=== PATIENT | female | born 1995 | race African-American/Black ===

== ENCOUNTER 2019-11-09 14:16 | Emergency (ER) | payer OTHER, SELFPAY ==
[2019-11-09 14:50] LABS: Bilirubin Negative (Negative); Blood, Urine Trace (Negative); Clarity Clear (Clear); Glucose, Urine (Dipstick) Negative (Negative); Leukocyte Moderate (Negative); Nitrite Negative (Negative); Protein, Urine (Dipstick) Negative (Neg-Trace); Urobilinogen 0.2 mg/dL (Less than 2)
[2019-11-09 14:58] LABS: Pregnancy Test - Urine (BHCG) Negative (Negative); Pregu Control Background? CLEAR/WHITE (CLR/WHITE); Pregu Control Bar Appear? YES (CONTROL BAR)
[2019-11-09 14:59] LABS: Bacteria/HPF 1+ HPF (None Seen)
[2019-11-09] MEDS ORDERED: Ondansetron ODT 4 MG TAB ONE (15:17)
[2019-11-09] MEDS ORDERED: Azithromycin 250 MG TAB ONE (15:17)
[2019-11-09] MEDS ORDERED: cefTRIAXone\\ROCEPHIN 250 MG VIAL ONE (15:17)
[2019-11-09] MEDS ORDERED: Lidocaine 1% PF 5 ML VIAL ONE (15:21)
== END 2019-11-09 15:55 | disposition home or self-care (01) ==
LOC: ERS 14:16
DX: N73.9 Female pelvic inflammatory disease, unspecified (principal); F17.290 Nicotine dependence, other tobacco product, uncomplicated
CPT/HCPCS: 81003; 81015; 81025; 87480; 87491; 87510; 87591; 87660; 96372; 99283; J0696; J2001; Q0162

== ENCOUNTER 2020-01-05 14:43 | Observation (INO) | payer OTHER, SELFPAY ==
--- NOTE | 2020-01-05 15:24 | RAD ---
Exam: XR Ankle Rt 3 View STANDARD HISTORY: Injury right ankle. COMPARISON: None FINDINGS: There is an obliquely oriented fracture involving the distal fibula with mild separation of fracture fragments. No additional fracture is visualized. There does appear to be mild asymmetric widening of the joint s pace between the medial malleolus and talus with respect to the joint space between the distal tibia and tibial plafond and ligamentous injury cannot be excluded. However, no significant adjacent soft tissue swelling is seen medially. IMPRESSION: 1. Mildly fracture distal right fibula with adjacent subcutaneous soft tissue swelling. 2. Mild increased widening of the joint space between the medial malleolus and talus. Ligamentous inj ury cannot be excluded.
[2020-01-05] MEDS ORDERED: HYDROcodone/Acetaminophen 10/325 mg Tablet ONE (16:14)
[2020-01-05] MEDS ORDERED: Fentanyl 100 MCG/2 ML VIAL ONE (16:53)
[2020-01-05] MEDS ORDERED: CEFAZOLIN 2 GM in Premix Bag 1 BAG IVPB SCH (17:00)
[2020-01-05] MEDS ORDERED: Dextrose 5% in Water 1,000 ML IV PRN (17:25)
[2020-01-05] MEDS ORDERED: hydrALAZINE 20 MG/ML VIAL SLOW IVP PRN (17:25)
[2020-01-05] MEDS ORDERED: Ondansetron PF 4 MG/2 ML Vial IVP PRN (17:25)
[2020-01-05] MEDS ORDERED: Dextrose 50% Abboject 50 ML SYRINGE SLOW IVP PRN (17:25)
--- NOTE | 2020-01-05 17:30 | CON ---
DATE OF CONSULTATION: This is Solo Gallegos PA-C dictating a report for Shayan Wilson MD. SUBJECTIVE: We were asked by the ER to see patient. The patient was squatting down earlier today and she was on some gravel and a right ankle slipped out from under her, she felt a pop and thought she had been kicked, she looked down at her ankle and It was not in its right place. She then pushed it back in place, tried to walk, but she was unable to due to pain. She was brought to the emergency room by a friend. No other injury sustained in this fall, and she has no numbness and tingling in the foot. No abrasions in the area and says she is quite healthy. PAST MEDICAL HISTORY: Healthy. PAST SURGICAL HISTORY: C-sections x2, cyst removal, and tubes in ears. PSYCHIATRIC HISTORY: None. SOCIAL HISTORY: Denies any alcohol or nicotine, or illicit drug use. FAMILY HISTORY: Positive for malignancy, cardiac disease, diabetes. MEDICATIONS: None. ALLERGIES: NO KNOWN DRUG ALLERGIES. REVIEW OF SYSTEMS: Denies any chest pain or shortness of breath. No bowel or bladder issues. Just complains of right ankle pain. Rest of review of systems is negative. PHYSICAL EXAMINATION: GENERAL: Well-nourished female, resting on the gurney in room 2 in the emergency room. She is in no acute distress. Speech clear. Affect pleasant. Answers questions appropriately. She is alert and oriented x3. HEENT: Face symmetric. Tongue midline. NECK: Supple. Trachea midline. EXTREMITIES: Upper extremities are equal size, shape, symmetry. Normal bulk and tone. Strength equal as are sensations. RESPIRATIONS: 16 and equal. No acute distress. PELVIS: No pain with rocking. LOWER EXTREMITIES: Also equal size, shape, symmetry. Normal bulk and tone, with the exception of the right ankle, it is a little bit swollen and has some tenderness to palpation over the lateral malleolus. She has good bilateral sensations, and DP and PT pulses are intact. ASSESSMENT: Ground level fall sustaining a right ankle fracture with mild offset dislocation put back in place by patient. PLAN: I spoke with the patient. Initially, gave her the option, could be splinted in the ER. She can go home and have it fixed next week or we could have the Trauma Team. Admit the patient and get her fixed up tomorrow. She chose for admission. Trauma will admit. We will get her on the surgery schedule for tomorrow, get her consented. Overnight, we will have the nurses iced and elevated. Pain control per Trauma. Gone over the risks and benefits of surgery with the patient. Her questions and concerns have been addressed and answered, and she is amenable to go forth with surgery. We will get her on tomorrow afternoon, and again orders will be placed in the computer. Job ID: [id number] [facility]
--- NOTE | 2020-01-05 17:32 | RAD ---
CHEST ONE VIEW: History: Chest pain Comparison: None FINDINGS: Lungs are clear. No pneumothorax or effusion. Cardiac silhouette and mediastinal contours are within normal limits. No acute osseous abnormality. IMPRESSION: No acute intrathoracic abnormality. POS: [facility]
[2020-01-05 17:34] LABS: #Basophils 0.1 thou/uL (0.0-0.2); #Eosinphils 0.1 thou/uL (0.0-0.7); #Lymphocytes 2.6 thou/uL (1.20-3.40); #Monocytes 0.6 thou/uL (0.11-0.59); #Neutrophils 5.5 thou/uL (1.40-6.50); %Basophils 0.6 % (0.0-1.0); %Eosinophils 0.8 % (0.0-10.0); %Lymphocytes 29.2 % (21.0-51.0); %Monocytes 6.6 % (0.0-10.0); %Neutrophils 62.7 % (42.0-75.0); Hemoglobin 12.1 g/dL (12.0-16.0); Mean Corpuscular HGB CONC 32.2 g/dL (32.0-36.0); Mean Corpuscular Hemoglobin 29.2 pg (27.0-31.0); Mean Corpuscular Volume 90.8 fL (78.0-98.0); Mean Platelet Volume 7.2 fL (7.4-10.4); Platelet Count 348 thou/uL (130-400); RBC Distribution Width 13.4 % (11.5-14.5); Red Blood Cell (RBC) Count 4.15 mill/uL (4.20-5.40); White Blood Cell (WBC) Count 8.8 thou/uL (4.8-10.8)
[2020-01-05 17:55] LABS: ALT (SGPT) 12 U/L (8-55); AST (SGOT) 17 U/L (5-34); Albumin 4.6 g/dL (3.5-5.0); Alkaline Phosphatase 58 U/L (40-110); Anion Gap 15 mmol/L (10-20); BUN (Urea Nitrogen) 12 mg/dL (7.0-18.7); Bilirubin, Total 0.4 mg/dL (0.2-1.2); Calc. Creatinine Clearance 0 mL/min (70-130); Calcium 9.7 mg/dL (7.8-10.44); Carbon Dioxide 25 mmol/L (22-29); Chloride 103 mmol/L (98-107); Estimated GFR-MDRD Greater than 90; Globulin 3.4 g/dL (2.4-3.5); Glucose 96 mg/dL (70-105); Potassium 3.7 mmol/L (3.5-5.1); Sodium 139 mmol/L (136-145)
[2020-01-05 19:35] VITALS: BMI 40.0
[2020-01-05] MEDS: Acetaminophen 325 MG TAB PO SCH ×2 (19:46→23:45)
[2020-01-05] MEDS: Ibuprofen 800 MG TAB PO SCH (19:46)
[2020-01-05] MEDS: Morphine 4 MG/ML VIAL SLOW IVP PRN (19:47)
[2020-01-05] MEDS: Senokot S 8.6-50 MG TAB PO SCH (19:47)
[2020-01-05] MEDS: Famotidine/PF 20 mg/2ml Vial SLOW IVP SCH (19:47)
--- NOTE | 2020-01-05 20:30 | HP ---
TRAUMA SURGEON: Dr. Riggs. CONSULTING PHYSICIAN: Dr. Wilson. HISTORY OF PRESENT ILLNESS: The patient reported to the emergency department by POV today after a mechanical fall on some gravel yesterday. She reported her leg twisted and subsequently she fell. Afterwards, she was able to get up, ambulate and drive home. The next day, she woke up and was not able to ambulate. She subsequently came to the emergency department and it was noted that she had an ankle fracture. Trauma was asked to admit the patient and Orthopedic Surgery plans to take her to the OR tomorrow. REVIEW OF SYSTEMS: All additional 10-point review of systems negative except as indicated above. PAST MEDICAL HISTORY: None. PAST SURGICAL HISTORY: x2, cyst removal, and tonsillectomy. SOCIAL HISTORY: The patient vapes. She denies drug or alcohol use. MEDICATIONS: None. ALLERGIES: PENICILLIN. PHYSICAL EXAMINATION: VITAL SIGNS: Temperature 98.8, pulse 92, respirations 18, oxygen saturation 99 % on room air, and blood pressure 117/51. GENERAL: Well-appearing young female, sitting up in bed with no signs of acute distress. PULMONARY: Equal chest rise and fall. Clear breath sounds bilaterally. No signs of acute respiratory distress. CARDIAC: Regular rate and rhythm. No murmurs, gallops, or rubs. GI: Abdomen is soft, nontender, and nondistended. EXTREMITIES: 2+ pulses in all extremities. Gross motor and sensation intact. She has some mild to moderate swelling of her right ankle with tenderness. Pulses are otherwise intact. NEURO: GCS is 15. LABORATORY FINDINGS: White count 8.8, hemoglobin 12.1, hematocrit 37.7, and platelets 348. Sodium 139, potassium 3.7, chloride 103, bicarb 25, BUN 12, creatinine 0.76, glucose 96. DIAGNOSTIC FINDINGS: X-ray of the right ankle demonstrates mildly fracture of the distal right fibular with adjacent subcutaneous soft tissue swelling. Mildly increased widening of the joint space between the medial malleolus and talus ligament, thus injury cannot be excluded. Chest x-ray demonstrates no acute intrathoracic abnormalities. ASSESSMENT: 1. Status post mechanical fall from standing. 2. Right distal fibular fracture with joint space widening. PLAN: The patient will be admitted to the Trauma Service. She can have a regular diet. She will be n.p.o. at midnight. She will go to the OR with Orthopedic Surgery in the morning. She will have p.r.n. and IV medications. Postop, she will work with Physical and Occupational Therapy and will likely be discharged home tomorrow. This patient was discussed with Dr. Riggs before this dictation. Job ID: [id number] MTDD
[2020-01-05] MEDS: traMADol HCl 50 MG TAB PO PRN (23:45)
--- NOTE | 2020-01-06 01:31 | PRG ---
DATE OF SERVICE: 01/06/2020 SUBJECTIVE: The patient was seen on a surgical floor this evening during rounds. The patient is currently having some throbbing like pain in her right ankle. The patient is tolerating a regular diet. PHYSICAL EXAMINATION: VITAL SIGNS: Afebrile, stable. GENERAL: Well-appearing young female in moderate distress due to right ankle pain. PULMONARY: Equal chest rise and fall. Respirations are even and nonlabored. CARDIAC: Regular rate, regular rhythm. EXTREMITIES: Moves all extremities. Gross motor and sensation intact. The patient has a right walking boot in place at this time. IMPRESSION: 1. Status post mechanical fall from standing, with delayed presentation. 2. Right distal fibular fracture with joint space widening. 3. Acute traumatic pain. PLAN: N.p.o. after midnight. Orthopedic Surgery plans to take her to the OR in the morning for repair of her right ankle. We will have patient work with physical and occupational therapy. Post, if patient is able to ambulate safely and her pain is controlled, she may be discharged tomorrow. Postop, the plan was discussed with the patient who agrees. Job ID: [id number]
[2020-01-06] MEDS: Ibuprofen 800 MG TAB PO SCH ×3 (03:23→18:33)
[2020-01-06] MEDS: Acetaminophen 325 MG TAB PO SCH ×4 (05:33→23:47)
[2020-01-06] MEDS: Famotidine/PF 20 mg/2ml Vial SLOW IVP SCH ×2 (09:14→19:57)
[2020-01-06] MEDS: traMADol HCl 50 MG TAB PO PRN ×3 (09:14→23:47)
[2020-01-06] MEDS: Senokot S 8.6-50 MG TAB PO SCH ×2 (09:18→19:57)
[2020-01-06] MEDS: Polyethylene Glycol 3350 17 GM Packet PO SCH (09:18)
[2020-01-06] MEDS ORDERED: diphenhydrAMINE 25 MG CAP PO SCH (10:00)
[2020-01-06] MEDS ORDERED: Dexamethasone 20 MG/5 ML VIAL ONE (11:10)
[2020-01-06] MEDS ORDERED: Lidocaine 1% PF 5 ML VIAL ONE (11:10)
[2020-01-06] MEDS ORDERED: Ondansetron PF 4 MG/2 ML Vial ONE (11:10)
[2020-01-06] MEDS ORDERED: diphenhydrAMINE 50 MG/ML VIAL ONE (11:10)
[2020-01-06] MEDS ORDERED: PROPOFOL 200 MG/20 ML VIAL ONE (11:10)
[2020-01-06] MEDS ORDERED: Ketorolac Tromethamine 30 MG/ML VIAL ONE (11:10)
--- NOTE | 2020-01-06 12:57 | PRG ---
DATE OF SERVICE: 01/06/2020 SUBJECTIVE: Ms. Mccain is a 24-year-old female, status post mechanical fall. She sustained right distal fibular fracture. The patient had been on boot for comfort and Dr. Wilson will see the patient and discuss the surgical option. The patient reports pain well controlled; however, she complained of itchiness inside of R ankle boot. She tolerated with her regular diet. Her vital signs stable. Her urine adequate. PHYSICAL EXAMINATION: GENERAL: Currently, the patient lying in bed comfortable with no acute respiratory distress. VITAL SIGNS: Temperature 97.6, heart rate 71, respiratory rate 18, O2 saturation 100% on room air, blood pressure 95/64. LUNGS: Clear bilaterally. HEART: Regular rate and rhythm. ABDOMEN: Soft and nondistended. EXTREMITIES: Neurovascularly intact x4. The right feet is on boot comfortable. NEUROLOGIC: No focal neurology deficits. ASSESSMENT: 1. Status post ground level fall. 2. Right ankle fracture. PLAN: Plan will be pain control, nonpharmacological DVT prophylaxis. The patient will await for Dr. Wilson to discuss on surgical option. Anticipate to go to the OR for fixation today. Postop, the patient will need to work with Physical Therapy and Occupational Therapy. Anticipate discharge home. The patient was seen and evaluated with Dr. Riggs on round this morning. Job ID: [id number] MTDD
[2020-01-06] MEDS ORDERED: Sodium Chloride 0.9% 20 ML ONE (14:13)
[2020-01-06] MEDS ORDERED: Fentanyl 100 MCG/2 ML VIAL ONE ×3 (14:19→16:50)
--- NOTE | 2020-01-06 18:14 | RAD ---
THREE FLUOROSCOPIC SPOT IMAGES OF THE RIGHT ANKLE: 01/06/20 INDICATION: History of ORIF of right ankle. COMPARISON: Right ankle radiograph 01/05/20 at 2:46 p.m. FINDINGS: There has been interval reduction and internal fixation of the comminuted lateral malleolar fracture. There is improved alignment of the ankle mortise. Improved alignment involving the medial malleolar fracture component. The total fluoroscopic time was 10 seconds. Total exposure was 0.46 mGy. IMPRESSION: Interval reduction and internal fixation of bimalleolar right ankle fracture. POS: [facility]
[2020-01-06] MEDS: Morphine 4 MG/ML VIAL SLOW IVP PRN (19:06)
--- NOTE | 2020-01-06 19:33 | OP ---
DATE OF PROCEDURE: 01/06/2020 PREOPERATIVE DIAGNOSIS: Right lateral malleolus fracture. POSTOPERATIVE DIAGNOSIS: Right lateral malleolus fracture. PROCEDURE PERFORMED: Open reduction and internal fixation of right lateral malleolus. ANESTHESIA: General. SCRAP BUNCH MAKER: Katia Meza PA-C TOURNIQUET TIME: 42 minutes at 300 mmHg. IMPLANTS: Synthes distal fibular plates were used with combination of 2.7 and 3.5 mm screws. COMPLICATIONS: None. DRAINS: None. SPECIMEN: None. OUTCOME: Satisfactory. INDICATIONS: The patient is a 24-year-old lady, who has sustained a lateral malleolus fracture. After discussion with the patient including risks and benefits, we decided to proceed with open reduction and internal fixation due to displacement of the fracture, what appeared to be slight widening of the medial joint space. After discussion with the patient including risks and benefits, she has agreed to proceed with surgery. Informed consent has been obtained, I believe all questions answered. DESCRIPTION OF PROCEDURE: The patient was brought to the operating room and a time-out performed followed by induction of general anesthesia. Next, the patient was positioned supine on the OR table and then a sterile prep and drape was performed of the right lower extremity. Next, limb was exsanguinated with an Esmarch bandage, tourniquet inflated to 300 mmHg. A lateral skin incision was made overlying the lateral malleolus after skin was sharply incised. Dissection was carried down bluntly exposing the lateral cortex of the distal fibula. Periosteum was removed from the fracture gap and the fracture reduced and held in place with a bone tenaculum. Next, an anterior to posterior interfragmentary compression screw was applied, getting excellent compression across the fracture line. Next, a neutralization device was placed at the lateral cortex of the distal fibula. This in the form of a 4-hole lateral distal fibular plate. An initial 3.5-mm cortical screw was used to affix the plate to the lateral aspect of the distal fibula. This was then followed by insertion of a single metaphyseal screw distally followed by 3 locking screws distally. Next, two additional 2.7 mm screws were applied proximally, getting excellent stabilization of the fracture. AP, lateral, and mortise x-rays were then obtained that showed anatomic alignment of the fracture and reduction of the medial joint space. The wound was then irrigated with bulb syringe and closed in layers with 0 Vicryl deep, followed by 2-0 Vicryl and then nylon for the skin. Xeroform gauze, Webril, and fiberglass splint was applied to the ankle and the patient was transferred to recovery room in stable condition. The tourniquet was let down at the completion of dressing. There were no complications and she tolerated the procedure well. Job ID: [id number]
[2020-01-06] MEDS: Cyclobenzaprine 10 MG TAB PO PRN (22:40)
[2020-01-06] MEDS: CEFAZOLIN 2 GM in Premix Bag 1 BAG IVPB SCH (22:41)
--- NOTE | 2020-01-07 01:41 | PRG ---
DATE OF SERVICE: 01/07/2020 SUBJECTIVE: The patient is currently on the surgical floor. She is status post mechanical fall, in which she sustained a right lateral malleolus fracture. Today, she underwent open reduction and internal fixation of same. She tolerated this procedure well. She did crutch training with Physical Therapy prior to surgery, but has not worked with them postop. Since returning to the floor, she is tolerating a diet. Her pain is controlled. PHYSICAL EXAMINATION: VITAL SIGNS: Stable. The patient is afebrile. GENERAL: The patient is resting comfortably in bed. She is awake, alert, conversant, and has no complaints at this time. RESPIRATIONS: Nonlabored. EXTREMITIES: Neurovascularly intact x4. Her postop dressing is clean, dry, and intact. ASSESSMENT: 1. Status post ground level fall. 2. Status post open reduction and internal fixation of right lateral malleolus. PLAN: Plan will be to continue supportive care. Encourage physical and occupational therapy and if her pain is adequately controlled and she is able to continue working with therapy, the patient will likely be able to be discharged within next 24 to 48 hours. Job ID: [id number]
[2020-01-07] MEDS: Ibuprofen 800 MG TAB PO SCH ×2 (03:38→11:06)
[2020-01-07] MEDS: CEFAZOLIN 2 GM in Premix Bag 1 BAG IVPB SCH (06:02)
[2020-01-07] MEDS: Acetaminophen 325 MG TAB PO SCH ×2 (06:02→12:25)
[2020-01-07] MEDS: Enoxaparin Sodium 30 MG/0.3 ML SYRINGE SC SCH ×2 (08:39→11:07)
[2020-01-07] MEDS: Senokot S 8.6-50 MG TAB PO SCH (08:39)
[2020-01-07] MEDS: Polyethylene Glycol 3350 17 GM Packet PO SCH (08:39)
[2020-01-07] MEDS: traMADol HCl 50 MG TAB PO PRN ×2 (08:40→14:31)
[2020-01-07] MEDS ORDERED: Famotidine 20 MG TAB PO SCH (09:00)
[2020-01-07] MEDS: Cyclobenzaprine 10 MG TAB PO PRN (11:06)
[2020-01-07 13:30] VITALS: BP 107/71; TEMP 98.1
== END 2020-01-07 16:10 | disposition home or self-care (01) ==
LOC: ERS 14:43 → SURG A 17:29
PROVIDERS: ADMIT Specialist; ATTEND Specialist
PROC: 0QSJ04Z Reposition Right Fibula with Internal Fixation Device, Open Approach (ICD-10-PCS; principal; 2020-01-06)
DX: S82.61XA Displaced fracture of lateral malleolus of right fibula, initial encounter for closed fracture (principal); G89.11 Acute pain due to trauma; F17.290 Nicotine dependence, other tobacco product, uncomplicated; Z88.0 Allergy status to penicillin; X50.1XXA Overexertion from prolonged static or awkward postures, initial encounter; W18.30XA Fall on same level, unspecified, initial encounter
CPT/HCPCS: 71045; 76000; 80053; 85025; 96365; 96372; 96374; 96375; 96376; C1713; G0378; J0690; J1100; J1200; J1650; J1885; J2001; J2270; J2405; J2704; J3010; Q0163; S0028

== ENCOUNTER 2020-01-26 09:01 | Outpatient (CLI) | payer SELFPAY, OTHER ==
[2020-01-26 10:57] LABS: BHCG - Serum Negative (NEGATIVE); Pregs Control Background? CLEAR/WHITE (CLR/WHITE); Pregs Control Bar Appear? YES (CONTROL BAR)
[2020-01-26 18:45] LABS: SARS-CoV-2 MS2 Positive; SARS-CoV-2 N Gene Negative; SARS-CoV-2 S Gene Negative; SARS-CoV-2 orf1ab Negative
== END 2020-01-26 09:02 | disposition home or self-care (01) ==
LOC: LABBT 09:01
PROVIDERS: ATTEND Orthopaedic Surgery
DX: Z01.812 Encounter for preprocedural laboratory examination (principal); Z11.59 Encounter for screening for other viral diseases; S82.401A Unspecified fracture of shaft of right fibula, initial encounter for closed fracture
CPT/HCPCS: 84703; 87635; U0003

== ENCOUNTER 2020-01-27 10:48 | Day surgery (SDC) | payer SELFPAY ==
[2020-01-26 09:31] VITALS: BMI 39.2
[2020-01-27] MEDS ORDERED: Lidocaine 1% PF 5 ML VIAL ONE (12:44)
[2020-01-27] MEDS ORDERED: PROPOFOL 200 MG/20 ML VIAL ONE (12:44)
[2020-01-27] MEDS ORDERED: Lidocaine 1% w/Epinephrine 1:100K 20 ML VIAL ONE (12:48)
[2020-01-27] MEDS ORDERED: Bupivacaine 0.25% HCL 30 ML VIAL ONE (12:48)
--- NOTE | 2020-01-27 16:32 | OP ---
DATE OF PROCEDURE: 01/27/2020 PREOPERATIVE DIAGNOSES: 1. Retained suture, status post open reduction and internal fixation of right ankle. 2. Severe anxiety. POSTOPERATIVE DIAGNOSES: 1. Retained suture, status post open reduction and internal fixation of right ankle. 2. Severe anxiety. PROCEDURES PERFORMED: Removal of sutures, right ankle. ANESTHESIA: TIVA. STORM DOOR MAKER: Ric Pruitt PA-C COMPLICATIONS: None. DRAINS: None. SPECIMENS: Explanted sutures discarded. INDICATIONS: Ms. Mccain is a 24-year-old lady with severe anxiety and is now status post open reduction and internal fixation for right lateral malleolus fracture. We have now made three attempts at suture removal from the ankle. However, she is unable to cope with this procedure despite receiving Valium prior to one of the attempts. The patient's anxiety is to the point now where she will not allow us to come near the sutures, which are in need of removal. As such, the patient now to undergo TIVA anesthesia for suture removal. Informed consent has been obtained. I believe all questions have been answered. DESCRIPTION OF PROCEDURE: The patient was brought to the operating room, and anesthesia was induced. Next, the sutures were removed without difficulty and then the wound Steri-Stripped. At the completion of this, the patient was woken and transferred back to recovery room in stable condition. There were no complications. She tolerated the procedure well. Job ID: [id number]
== END 2020-01-27 14:10 | disposition home or self-care (01) ==
LOC: SDC 10:48
PROVIDERS: ATTEND Orthopaedic Surgery
DX: Z48.02 Encounter for removal of sutures (principal); Z88.0 Allergy status to penicillin; F17.200 Nicotine dependence, unspecified, uncomplicated
CPT/HCPCS: J2001; J2704; S0020

== ENCOUNTER 2021-09-07 08:22 | Emergency (ER) | payer OTHER, SELFPAY ==
[2021-09-07] MEDS ORDERED: diphenhydrAMINE 25 MG CAP ONE (10:28)
[2021-09-07] MEDS ORDERED: Metoclopramide HCl 10 MG/2 ML VIAL ONE (10:28)
[2021-09-07] MEDS ORDERED: Metoclopramide HCl 10 MG TAB ONE (10:30)
[2021-09-07 21:24] LABS: SARS-CoV-2 PCR by NAA DETECTED (NotDetected)
== END 2021-09-07 12:28 | disposition home or self-care (01) ==
LOC: ERS 08:22
DX: U07.1 COVID-19 (principal); R29.700 NIHSS score 0; F17.290 Nicotine dependence, other tobacco product, uncomplicated
CPT/HCPCS: 99284; J2765; U0003; U0005